=== PATIENT | male | born 1975 | race Caucasian/White ===

== ENCOUNTER → 2020-08-12 | Outpatient (CLI) | payer BC, OTHER ==
[~2020-08-12] MED LIST: EPINEPHRIN0.3 MG/0.3 IM
== END ==
LOC: KOH-I 15:12
DX: M50.31 Other cervical disc degeneration, high cervical region (principal); M48.02 Spinal stenosis, cervical region; M25.78 Osteophyte, vertebrae
CPT/HCPCS: 72125

== ENCOUNTER → 2020-08-26 | Outpatient (CLI) | payer BC, OTHER ==
[2020-08-26 11:03] LABS: HEMOGLOBIN 18.2 gm/dl (14.0-17.5); RED BLOOD COUNT 5.81 M/UL (4.20-5.50); WHITE BLOOD COUNT 8.8 K/UL (4.5-11.0)
[2020-08-26 11:39] LABS: BUN/CREATININE RATIO 12 (0-10)
== END ==
LOC: OPSV2 09:14 → EDSTATUS 10:00 → OPSV2 10:00
PROVIDERS: Orthopaedic Surgery
DX: Z01.818 Encounter for other preprocedural examination (principal); M54.12 Radiculopathy, cervical region
CPT/HCPCS: 36415; 71046; 80048; 85027; 85610; 85730; 87081; 87086; 93005

== ENCOUNTER → 2020-09-07 | Outpatient (CLI) | payer BC, OTHER ==
[2020-09-07 13:28] LABS: BUN/CREATININE RATIO 10 (0-10)
== END ==
LOC: LAB 12:17
PROVIDERS: Orthopaedic Surgery
DX: Z01.812 Encounter for preprocedural laboratory examination (principal); M54.12 Radiculopathy, cervical region; G95.9 Disease of spinal cord, unspecified
CPT/HCPCS: 36415; 80048; 86850; 86900; 86901

== ENCOUNTER 2020-09-08 05:41 | Inpatient (IN) | payer BC, OTHER ==
[~2020-09-08] VITALS: Ht 175.3 cm; Wt 84.4 kg
[2020-09-08 15:38] LABS: HEMOGLOBIN 16.2 gm/dl (14.0-17.5); RED BLOOD COUNT 5.17 M/UL (4.20-5.50); WHITE BLOOD COUNT 15.3 K/UL (4.5-11.0)
[2020-09-08 15:57] LABS: BUN/CREATININE RATIO 12 (0-10)
[2020-09-08] MEDS ORDERED: EPINEPHRIN0.3 MG/0.3 IM (16:11)
[2020-09-09 05:21] LABS: HEMOGLOBIN 15.6 gm/dl (14.0-17.5); RED BLOOD COUNT 4.99 M/UL (4.20-5.50); WHITE BLOOD COUNT 17.4 K/UL (4.5-11.0)
[2020-09-09 05:44] LABS: BUN/CREATININE RATIO 13 (0-10)
--- NOTE | 2020-09-09 18:24 | NUR ---
PATIENT ARRIVED TO FLOOR FROM ICU AT THIS TIME. ALERT AND VERBAL, DENIES PAIN AND VOICES NO CONCERNS OR NEEDS AT THIS TIME. C- COLLAR IN PLACE. NO ACUTE DISTRESS NOTED. CALL TIM IN [facility]. FAMILY AT BEDSIDE.
[2020-09-10 09:57] LABS: HEMOGLOBIN 14.1 gm/dl (14.0-17.5); RED BLOOD COUNT 4.53 M/UL (4.20-5.50); WHITE BLOOD COUNT 17.6 K/UL (4.5-11.0)
[2020-09-10 10:14] LABS: BUN/CREATININE RATIO 10 (0-10)
[2020-09-11 08:56] LABS: HEMOGLOBIN 15.3 gm/dl (14.0-17.5); RED BLOOD COUNT 4.91 M/UL (4.20-5.50)
[2020-09-11 09:08] LABS: WHITE BLOOD COUNT 12.3 K/UL (4.5-11.0)
[2020-09-11 09:19] LABS: BUN/CREATININE RATIO 11 (0-10)
== END 2020-09-11 15:48 | disposition home or self-care (01) | DRG 472 ==
LOC: OR 05:41 → CCU 14:29 → M/S 09-09 17:21
PROVIDERS: Nurse Practitioner Family; ADMIT Orthopaedic Surgery
PROC: 0RG4071 Fusion of Cervicothoracic Vertebral Joint with Autologous Tissue Substitute, Posterior Approach, Posterior Column, Open Approach (ICD-10-PCS; 2020-09-08)
PROC: 01N10ZZ Release Cervical Nerve, Open Approach (ICD-10-PCS; 2020-09-08)
PROC: 00NW0ZZ Release Cervical Spinal Cord, Open Approach (ICD-10-PCS; 2020-09-08)
PROC: 0RG2071 Fusion of 2 or more Cervical Vertebral Joints with Autologous Tissue Substitute, Posterior Approach, Posterior Column, Open Approach (ICD-10-PCS; principal; 2020-09-08 07:30)
DX: M48.02 Spinal stenosis, cervical region (principal); G99.2 Myelopathy in diseases classified elsewhere; M54.12 Radiculopathy, cervical region; E87.6 Hypokalemia; Z88.0 Allergy status to penicillin; Z82.49 Family history of ischemic heart disease and other diseases of the circulatory system
CPT/HCPCS: 36415; 72040; 72050; 76000; 80048; 85027; 86850; 86900; 86901; 97116-GP-CQ; 97161; 97166; 97535; C1713; C1762; C1781; J0690; J1040; J1100; J1170; J2001; J2250; J2370; J2405; J2704; J3010; J3370; J7030; J7040; J7120; U0003